=== PATIENT | female | born 1975 | race Caucasian/White ===

== ENCOUNTER 2017-11-03 17:58 | Emergency (ER) | payer BC ==
[~2017-11-03] VITALS: Ht 165.1 cm; Wt 61.7 kg
[2017-11-03 18:07] VITALS: Ht 165.1 cm; Wt 61.7 kg
[2017-11-03 19:26] LABS: BASOPHIL % 0.6 % (0-2); PLATELET COUNT 359 x10^3mcL (130-400)
[2017-11-03 19:27] LABS: RED CELL DISTRIBUTION WIDTH 17.9 % (11.5-14.5)
[2017-11-03 19:32] LABS: CALCIUM 8.4 mg/dL (8.5-10.1); CARBON DIOXIDE 24.7 mmol/L (21-32); CHLORIDE SERUM 104 mmol/L (98-107); CREATININE SERUM 0.8 mg/dL (0.6-1.0); GFR1 > 60 mL/min; GLUCOSE SERUM 286 mg/dL (74-106); POTASSIUM SERUM 3.9 mmol/L (3.5-5.1); SODIUM SERUM 140 mmol/L (136-145)
[2017-11-03 19:44] LABS: ALBUMIN 3.7 g/dL (3.4-5.0); ALKALINE PHOSPHATASE 80 U/L (46-116); ALT/SGPT 19 U/L (14-59); AST/SGOT 13 U/L (15-37); BILIRUBIN TOTAL 0.2 mg/dL (0.20-1.00); T4(THYROXINE) 6.5 ug/dL (4.7-13.3); TOTAL PROTEIN, SERUM 7.9 g/dL (6.4-8.2)
[2017-11-03 19:59] LABS: AMPHETAMINE QUAL UR NONE DETECTED (NEG <=1000)
[2017-11-03 20:29] VITALS: BP 101/67
[2017-11-03 21:51] LABS: MAGNESIUM 1.7 mg/dL (1.8-2.4); PHOSPHOROUS 1.7 mg/dL (2.5-4.9)
== END 2017-11-03 21:10 | disposition left against medical advice (07) ==
LOC: ED 17:58 → DU 20:41 → ED 21:10
PROVIDERS: Emergency Medicine; Family Medicine
DX: R00.2 Palpitations (principal); R07.89 Other chest pain; R42 Dizziness and giddiness; E11.65 Type 2 diabetes mellitus with hyperglycemia
CPT/HCPCS: 82962; 83880; J0153; J3490; J7030; Q0092